=== PATIENT | male | born 1945 | race Caucasian/White ===

== ENCOUNTER → 2017-07-27 | Outpatient (CLI) | payer OTHER | END | disposition home or self-care (01) | LOC: CARD 15:32 | DX: Z03.89 Encounter for observation for other suspected diseases and conditions ruled out (principal) ==

== ENCOUNTER → 2018-01-29 | Outpatient (CLI) | payer OTHER | END | disposition home or self-care (01) | LOC: CT 08:00 | DX: R91.8 Other nonspecific abnormal finding of lung field (principal); K76.0 Fatty (change of) liver, not elsewhere classified ==

== ENCOUNTER → 2018-07-12 | Outpatient (CLI) | payer OTHER ==
[2018-07-12 09:09] LABS: CREATININE 1.06 mg/dL (0.70-1.30)
== END | disposition home or self-care (01) ==
LOC: LAB 08:31 → CT 09:00
PROVIDERS: Radiology Diagnostic Radiology
DX: R91.8 Other nonspecific abnormal finding of lung field (principal); R91.1 Solitary pulmonary nodule; R59.1 Generalized enlarged lymph nodes

== ENCOUNTER → 2019-01-04 | Day surgery (SDC) | payer OTHER ==
[~2019-01-04] VITALS: Ht 175.2 cm; Wt 79.4 kg
[~2019-01-04] MED LIST: ASPIRIN81 M1 PO; COREG12.5 M1 PO; GLUCOPHAGE500 M1 PO; GLYBURIDE5 MG PO; OMEPRAZOLE20 M2 PO; VITAMIN D32000 UNI1 PO; VITAMIN E200 UNI4 PO
--- NOTE | ~2019-01-04 | O ---
[place], [place] OPERATIVE NOTE NAME: TEGAN SIM UNIT #: [id number] ROOM: DOCTOR[facility] BIRTH[facility] [birth year] DOS: 01/04/2019 GASTROENDOSCOPIC REPORT INDICATIONS: A 73-year-old patient who has presented with chief complaint of epigastric abdominal pain, dyspepsia, colonic screening, undergoing procedure. ALLERGIES: No medication. FAMILY HISTORY: Noncontributory. PAST MEDICAL HISTORY: Hypertension, gastritis. PAST SURGICAL HISTORY: Pacemaker defibrillator. SOCIAL HISTORY: Smoker, 6-pack alcohol a week. PROCEDURE: Today's procedure part of investigation is panendoscopy and colonoscopy. PREMEDICATION: Propofol. SCOPE: Olympus forward-viewing gastroscope Q10 video. REPORT: After putting the patient in left lateral position and application of lubricant to the scope, the scope was introduced. Thereafter, under direct visualization, advanced through the length of esophagus without difficulty. Esophagus, cervical, thoracic distally carefully examined. Gastric pouch was entered. Evidence of gastritis was seen. Duodenal bulb, second and third part within normal limits. The patient extubated, tolerated the procedure well. IMPRESSION: Gastritis, status post antral biopsy, ruling out H. pylori. PLAN AND DISCUSSION: We are going to proceed with omeprazole 40 mg day, he has been on 20 mg daily. So far, aspirin is the culprit to his gastritis. We will proceed with colonoscopy. Gastro-endoscopy colonoscopic examination Today's procedure part of investigation is colonoscopy plus piecemeal polypectomy. PREMEDICATION: Propofol. SCOPE: Olympus forward-viewing colonoscope 10L video. DESCRIPTION OF PROCEDURE: After putting the patient in left lateral position and application of lubricant to the scope, the scope was introduced. Thereafter, under direct visualization, advanced through the length of colon without difficulty. Base of the cecum explored, appendiceal orifice identified, [place], [place] OPERATIVE NOTE NAME: TEGAN SIM UNIT #: [id number] ROOM: DOCTOR: ERNIE SOTOMAYOR MD BIRTHDATE: [birth year] ileocecal valve was defined. Scope was gradually withdrawn from ascending, transverse colon. Sessile polypoid lesion was with piecemeal polypectomy removed. Air was suctioned out. The patient was extubated, tolerated the procedure well. IMPRESSION: A small polyp, status post piecemeal polypectomy. PLAN: High fiber diet. ACTIVITY: Ad mara. FOLLOWUP: As outpatient. ERNIE SOTOMAYOR MD CM:OPRECORD:OPERATIVE NOTE [id number] ERNIE SOTOMAYOR MD 01/16/19 0655 interface
[2019-01-04 12:07] VITALS: BP 150/90
[2019-01-04 12:40] VITALS: BP 117/73
[2019-01-04 12:55] VITALS: BP 127/74
[2019-01-04 13:07] VITALS: BP 143/80
== END | disposition home or self-care (01) ==
LOC: SDC 01-01 12:30
DX: Z12.11 Encounter for screening for malignant neoplasm of colon (principal); D12.3 Benign neoplasm of transverse colon; K29.50 Unspecified chronic gastritis without bleeding; I25.10 Atherosclerotic heart disease of native coronary artery without angina pectoris; E11.9 Type 2 diabetes mellitus without complications; I10 Essential (primary) hypertension; F17.200 Nicotine dependence, unspecified, uncomplicated; Z98.890 Other specified postprocedural states

== ENCOUNTER 2023-11-15 10:28 | Emergency (ER) | payer MEDICARE ==
[~2023-11-15] VITALS: Ht 175.2 cm; Wt 72.6 kg
[2023-11-15] MEDS ORDERED: Dexamethasone Sodium Phospha 20 MG/5 ML VIAL IM ONE (11:00)
[2023-11-15] MEDS ORDERED: LIDOCAINE 1 EA PATCH T ONE (11:00)
[2023-11-15] MEDS ORDERED: Cyclobenzaprine Hydrochlorid 10 MG TAB PO ONE (11:00)
[2023-11-15] MEDS ORDERED: Ketorolac Tromethamine 30 MG/ML VIAL IM ONE (11:00)
[2023-11-15] MEDS ORDERED: MEDROL DOSEPAK4 MG PO (12:35)
[2023-11-15] MEDS ORDERED: CYCLOBENZAPRINE5 M3 PO (12:35)
== END 2023-11-15 13:29 | disposition home or self-care (01) ==
LOC: ED 10:28
DX: M54.50 Low back pain, unspecified (principal); Z79.899 Other long term (current) drug therapy; Z79.82 Long term (current) use of aspirin